=== PATIENT | female | born 1975 | race Caucasian/White ===

== ENCOUNTER 2019-07-17 14:48 | Emergency (ER) | payer OTHER, SELFPAY ==
--- NOTE | 2019-07-17 14:55 | ED.GENADULT ---
HPI - General Adult General Chief complaint: Urogenital-Female Stated complaint: uti Time Seen by Provider: 07/17/19 15:17 Source: patient Mode of arrival: ambulatory Limitations: no limitations History of Present Illness HPI narrative: 43-year-old female patient presents to the [facility] with complaints of urinary symptoms that started today. Patient states she has had burning with urination, urgency and frequency with urination as well. Patient states that she had the symptoms about a week and a half ago and was seen over tele-doc and was prescribed some Cipro for urinary tract infection but states she did not have a culture done at the time. Patient states that she did complete the Cipro but never felt like her symptoms went fully away. Patient states that she is a diabetic and taking farcigia. Patient states that she has also been through multiple rounds of steroids due to some upper respiratory infections that has caused her sugars to increase. Patient denies any low back pain. Denies any fevers, nausea, vomiting or diarrhea.. Patient states that she feels like her UTI never really went away. Denies any or breast-feeding at this time. Related Data Home Medications Medication Instructions Recorded Confirmed acyclovir 07/17/19 aripiprazole mg 07/17/19 buspirone mg 07/17/19 chlordiazepoxide-clidinium cap 07/17/19 clonazepam 07/17/19 dapagliflozin [Farxiga] mg 07/17/19 fluticasone furoate-vilanterol INHALATION 07/17/19 [Breo Ellipta] fremanezumab-vfrm [Ajovy Syringe] mg SUBCUT 07/17/19 methocarbamol mg 07/17/19 montelukast mg 07/17/19 omeprazole 07/17/19 suvorexant [Belsomra] mg PO 07/17/19 trazodone 07/17/19 Allergies Allergy/AdvReac Type Severity Reaction Status Date / Time adhesive tape Allergy Severe BLISTERY Verified 08/14/14 14:51 RASH sulfamethoxazole Allergy Severe HIVES Verified 08/14/14 14:51 cefaclor Allergy Unknown Verified 09/13/17 08:29 hydromorphone Allergy Unknown Verified 09/13/17 08:30 ibuprofen Allergy Unknown Verified 09/13/17 08:29 sulfamethizole Allergy Unknown Verified 09/13/17 08:29 trimethoprim Allergy Unknown Verified 09/13/17 08:29 HYDROMORPHONE HCL Allergy Severe RASH Uncoded 08/14/14 14:51 Review of Systems Review of Systems: Narrative: CONSTITUTIONAL: Denies fever, chills, or sweats. EYES: Denies visual changes, redness, or discharge. ENT: Denies rhinorrhea, congestion, sore throat, or otalgia. CARDIOVASCULAR: Denies chest pain, palpitations, or edema. RESPIRATORY: Denies cough or dyspnea. GASTROINTESTINAL: Denies abdominal pain, nausea, vomiting, or diarrhea. GENITOURINARY: Denies dysuria or hematuria. Positive pain with urination, urgency and frequency SKIN: Denies rash or itching. MUSCULOSKELETAL: Denies back pain, joint pain, or myalgia. NEUROLOGIC: Denies headache, numbness, or weakness. PSYCHIATRIC: Denies anxiety or depression. [facility] Past Medical History Medical History (Updated 07/17/19 @ 15:27 by MIGUEL A Rojas) Anxiety Asthma Depression Diabetes Endometriosis Migraines Restless leg syndrome Surgical History Surgical History (Updated 07/17/19 @ 15:27 by MIGUEL A Rojas) H/O Spinal surgery L3, L4 in 2009 due to degenerative disc disease H/O: hysterectomy Hx of cholecystectomy Family History Family History Father No family history of malignant neoplasm No family history of diabetes mellitus Social History Social History Smoking status: Never smoker Second hand tobacco smoke exposure: No Alcohol intake: current Comments At the time of my signature I agree with nursing past medical history, surgical, social, and family history. There is no relevant family history pertinent to the presenting complaint. Exam Narrative: Exam Narrative: GENERAL: Well-appearing, well-nourished, and in no a
[2019-07-17 15:07] VITALS: BP 107/85; PULSE 76; RESP 16; TEMP 36.3; O2SAT 99
== END 2019-07-17 15:33 | disposition home or self-care (01) ==
PROVIDERS: Emergency Provider Nurse Practitioner Family
DX: N30.00 Acute cystitis without hematuria (principal); R81 Glycosuria; E11.9 Type 2 diabetes mellitus without complications; F41.9 Anxiety disorder, unspecified; F32.9 Major depressive disorder, single episode, unspecified; J45.909 Unspecified asthma, uncomplicated; G25.81 Restless legs syndrome; N80.9 Endometriosis, unspecified
CPT/HCPCS: 81003; 87077; 87086; 87088; 87186; 99213; G0463